=== PATIENT | male | born 1995 | race Two or more races ===

== ENCOUNTER 2019-01-26 09:49 | Emergency (ER) | payer OTHER ==
[~2019-01-26] VITALS: Ht 172.7 cm; Wt 70.8 kg
== END 2019-01-26 13:45 | disposition home or self-care (01) ==
LOC: ER 09:49
DX: J11.1 Influenza due to unidentified influenza virus with other respiratory manifestations (principal)

== ENCOUNTER 2020-08-07 08:00 | Outpatient (CLI) | payer OTHER | END 2020-08-07 08:30 | disposition home or self-care (01) | LOC: PPH VACUNA 08:00 | DX: Z23 Encounter for immunization (principal) ==

== ENCOUNTER 2020-08-28 08:00 | Outpatient (CLI) | payer OTHER | END 2020-08-28 08:30 | disposition home or self-care (01) | LOC: PPH VACUNA 08:00 | DX: Z23 Encounter for immunization (principal) ==

== ENCOUNTER 2021-03-19 08:00 | Emergency (ER) | payer OTHER ==
[~2021-03-19] VITALS: Ht 172.7 cm; Wt 74.4 kg
== END 2021-03-19 12:23 | disposition home or self-care (01) ==
LOC: ER 08:00
DX: B34.9 Viral infection, unspecified (principal); Z03.818 Encounter for observation for suspected exposure to other biological agents ruled out; Z03.89 Encounter for observation for other suspected diseases and conditions ruled out